=== PATIENT | male | born 1980 | race Caucasian/White ===

== ENCOUNTER 2017-02-12 12:12 | Emergency (ER) | payer BC ==
[2017-02-12 12:40] LABS: BASOPHILS 0.1 %; BASOPHILS ABSOLUTE 0.02 10/3/uL (0.0-0.16); EOSINOPHILS 0 %; EOSINOPHILS ABSOLUTE 0.01 10/3/uL (0.0-0.53); HEMATOCRIT 45.6 % (40.0-51.0); HEMOGLOBIN 15.3 g/dL (13.6-17.8); IMMATURE GRANULOCYTES 0.4 %; IMMATURE GRANULOCYTES ABSOLUTE 0.09 10/3/uL (0.0-0.11); LYMPHOCYTES 2.2 %; LYMPHOCYTES ABSOLUTE 0.44 10/3/uL (0.67-4.30); MEAN CORPUS HGB CONC 33.6 g/dL (32.0-36.0); MEAN CORPUSCULAR HEMOGLOB 30.1 pg (26.0-34.0); MEAN CORPUSCULAR VOLUME 89.8 fL (80-100); MEAN PLATELET VOLUME 10.2 fL (9.2-13.0); MONOCYTES 7.7 %; MONOCYTES ABSOLUTE 1.56 10/3/uL (0.21-1.20); NEUTROPHILS 89.6 %; PLATELET COUNT 175 10/3/uL (150-400); RBC DISTRIBUTION WIDTH 13.2 % (12.0-16.0); RED CELL COUNT 5.08 10/6/uL (4.7-6.1)
[2017-02-12 12:41] LABS: ER CBC TAT 0 Hrs 07 Mins; MANUAL DIFF NO %; WHITE BLOOD CELLS 20.2 10/3/uL (4.5-10.5)
[2017-02-12 12:42] LABS: ASCORBIC ACID (UR NOT ORDER) NEG (NEG); BILIRUBIN, URINE NEGATIVE (NEG); ER URINALYSIS TAT 0 Hrs 08 Mins; KETONE, URINE NEGATIVE (NEG); LEUKOCYTE ESTERASE(NOT OR NEG (NEG); NITRITE (URINE) NEG (NEG); WBC (NOT ORDERED) (RFLEX) < 1 (0-5)
[2017-02-12 12:47] LABS: INTERNATIONAL NORMAL RATI 1.2 UNITS (-); PARTIAL THROMBO TIME 29.2 SEC (22.5-37.2); PROTIME (NOT ORD) 15.3 SEC (12.0-14.5)
[2017-02-12 12:57] LABS: A/G RATIO 1.4 (0.7-1.9); ALBUMIN 4.4 G/DL (3.5-5.0); ALKALINE PHOSPHATASE 85 U/L (45-117); BUN (BLOOD UREA NITROGEN) 10 MG/DL (6-23); CALCIUM, SERUM 8.9 MG/DL (8.5-10.4); CHLORIDE, SERUM 104 MMOL/L (96-112); CO2 (CARBON DIOXIDE) 26 MMOL/L (24-34); CREATININE 1.04 MG/DL (0.70-1.30); GFR AFRICAN AMERICAN 106 ML/MIN (>=60); GFR NON AFRICAN AMERICAN 91 ML/MIN (>=60); GLOBULIN 3.1 G/DL (2.5-4.1); POTASSIUM, SERUM 3.8 MMOL/L (3.5-5.3); SGOT(AST) 15 U/L (5-40); SGPT(ALT) 21 U/L (5-65); SODIUM, SERUM 139 MMOL/L (135-148); TOTAL PROTEIN 7.5 G/DL (6.0-8.5)
[2017-02-12 12:58] LABS: GLUCOSE, SERUM 127 MG/DL (60-99); TOTAL BILIRUBIN 1.9 MG/DL (0-1.2)
[2017-02-12 12:59] LABS: LACTATE 1.7 MMOL/L (0.3-2.4)
== END 2017-02-12 14:26 | disposition home or self-care (01) ==
LOC: ER 12:12
PROVIDERS: Hospitalist
DX: K02.9 Dental caries, unspecified (principal)
CPT/HCPCS: 71020; 80053; 81001; 83605; 83690; 85025; 85610; 85730; 87040; 93005; 96374; 99284; A9270-GY; J1885; J2405